=== PATIENT | female | born 1950 | race Caucasian/White ===

== ENCOUNTER 2020-06-04 19:15 | Emergency (ER) | payer MEDICARE, BC ==
[~2020-06-04] VITALS: Ht 157.5 cm; Wt 75.7 kg
[2020-06-04] MEDS ORDERED: LIDOCAINE HCL 1% LOCAL INJ 20 ML VIAL INJ STA (20:18)
[2020-06-04] MEDS ORDERED: CEPHALEXIN 500 MG CAP PO STA (20:18)
[2020-06-04] MEDS ORDERED: TETANUS/DIPHTHERIA TOX ADULT 0.5 ML SYR IM STA (20:18)
[2020-06-04] MEDS ORDERED: AMOXICILLIN/CLAVULANATE K 875 MG TAB PO STA (20:29)
[2020-06-04] MEDS ORDERED: TETANUS/DIPHTHERIA TOX ADULT 0.5 ML SYR ONE (20:34)
[2020-06-04 20:36] VITALS: BP 150/74
[2020-06-04] MEDS ORDERED: AMOXICILLIN/CLAVULANATE K 875 MG TAB ONE (20:38)
[2020-06-04] MEDS ORDERED: CLEOCIN HCL300 MG PO (21:02)
== END 2020-06-04 20:36 | disposition home or self-care (01) ==
LOC: FSED 19:40
DX: S61.211A Laceration without foreign body of left index finger without damage to nail, initial encounter (principal); S61.213A Laceration without foreign body of left middle finger without damage to nail, initial encounter; W26.0XXA Contact with knife, initial encounter; Y93.G3 Activity, cooking and baking; Y92.000 Kitchen of unspecified non-institutional (private) residence as the place of occurrence of the external cause
CPT/HCPCS: 90471; 90714; 99283